=== PATIENT | female | born 1980 | race Caucasian/White ===

== ENCOUNTER → 2016-03-27 | Outpatient (CLI) | payer OTHER ==
--- NOTE | 2016-03-27 09:26 | US ---
Complete Pelvic Sonography (Transabdominal and Endovaginal) Clinical History: 35-year-old female whose physician felt a 3 x 5 cm "mass" above the sectio n scar about 3 weeks ago, and she has felt this for at least 6 months. It is not tender. Her LMP was March 27, 2016, and she is G2, P1. ICD-10 Diagnostic Code: R19.00 and R22.2. Technique: Initially, a curvilinear 5 MHz transducer was used to sonographically evaluate of the pelv is, using a full urinary bladder as a window. To better assess the uterine architecture and the adnex al structures, endovaginal pelvic sonography was also performed. Color Doppler and spectral Doppler a re used. A linear 12 MHz transducer was used to evaluate the area of palpable concern along the low m idline pelvis with color and spectral Doppler also utilized. Cine clips were acquired through this ar ea. Comparison Study: None. Findings: Transabdominal Pelvic Sonography: The uterus is normal in size, shape, and position, measuring 8.8 x 4.6 x 4.0 cm. There is an echogenic calcification associated with the section scar seen sejal g the lower anterior midline. The right adnexal region is obscured by bowel gas. There is limited ass essment of the left ovary. Along the low midline pelvis, anterior to the urinary bladder, there is a macrolobulated hypoechoic 6.2 x 2.6 x 7.1 cm mass. There is some minimal intrinsic vascular flow with color Doppler, and this does not have the appearance of a typical hematoma. A post- section desmoid tumor versus endometrium are the leading differential diagnostic considerations, and surgical correlation is suggested. Endovaginal Pelvic Sonography: Calcification is seen at the section scar, measuring 4 x 4 x 2 mm in diameter. The endometrial thickness is 11 mm. There is no focal myometrial abnormality. There is a tiny amount of free fluid in the pelvic cul-de-sac. The right ovary measures 2.5 x 1.8 x 3.0 cm , and contains some tiny peripheral follicles. The left ovary measures 2.6 x 1.3 x 2.7 cm, and also c ontains some tiny follicles. Intraovarian arterial and venous flow is documented. Impression: 1. The area of palpable concern resides anterior to the urinary bladder along the fascial plane; diff erential considerations would include an abdominal wall desmoid tumor versus endometrioma; surgical e xcision is suggested for further histologic evaluation. 2. Calcified scar along the lower anterior midline uterus, at the section level. The uterus is otherwise normal in appearance, as are the ovaries.
== END ==
LOC: CIMAGING 07:32
PROVIDERS: ATTEND Obstetrics & Gynecology
DX: R19.00 Intra-abdominal and pelvic swelling, mass and lump, unspecified site (principal); Z98.891 History of uterine scar from previous surgery
CPT/HCPCS: 76856-PO

== ENCOUNTER → 2016-04-05 | Outpatient (CLI) | payer OTHER ==
[~2016-04-05] MED LIST: IOPAMIDOL (ISOVUE 370) 100 ML BTL IV ONE
--- NOTE | 2016-04-05 14:52 | CT ---
Contrast-Enhanced CT Scan of the Abdomen and Pelvis Clinical History: 35-year-old female who has a mass along the fascial plane in the anterior pelvis at the level of a section scar, which is reportedly not cyclically tender; recent sonography i dentified a mildly vascular hypoechoic mass with the chief differential considerations of a desmoid t umor versus endometrioma. ICD-10 Diagnostic Code: R19.00. Technique: Following oral contrast and the uncomplicated intravenous administration of 90 mL of Isovu e-300, a multidetector helical CT scan was obtained from the lung bases inferiorly through the proxim al femora, with images reformatted at 5.00 and 1.25 mm increments, and reviewed at a variety of windo w and level settings. Parasagittal and paracoronal reconstructed images are reviewed on workstation. The DFOV is 40.0 cm. A dose reduction protocol was used. Findings: Contrast-Enhanced CT Scan of the Abdomen: The lung bases are clear. There is no pleural or pericardia l effusion. The stomach is moderately distended with ingested fluid and debris, as well as enteric co ntrast. The liver, partially contracted gallbladder, pancreas, spleen (which measures 11.3 cm), adren al glands, and the kidneys are normal. There is no ascites, or retroperitoneal or mesenteric lymphade nopathy. The abdominal aorta and IVC are normal in caliber. The splenic vein, superior mesenteric vei n, and the main portal vein are patent. The osseous structures are age-appropriate Contrast-Enhanced CT Scan of the Pelvis: There is a mildly hyperdense (versus enhancing) mass occupyi ng much of the caudal margin of the right rectus abdominis muscle, seen on axial series 3, images 277 -319, and also identified on coronal series 31, images 16-21. This measures 5.0 x 3.2 cm (transverse diameter) x 6.6 cm (cephalocaudal diameter), and has a Hounsfield unit measurement of 86. This is not ed near some scarring associated with the patient's previous section. On the prior pelvic so nogram, there was some vascular flow along the anterior margin of this mass. This militated against a complex seroma, and the chief differential diagnostic considerations would again remain a desmoid tu mor (aggressive fibromatosis) versus an endometrioma. A primary or secondary lymphoma could potential ly have this appearance, as could metastatic disease or a muscular tumor (with some hemorrhagic compo nents), although there is no history of a primary malignancy, lymphadenopathy, or splenomegaly. There is a normal appearance to the retrocecal appendix. There is no free fluid. The uterus is midline. Th e urinary bladder is moderately distended. There are tiny follicles associated with the ovaries, with no dominant solid or cystic adnexal mass. The osseous structures are age-appropriate. Impression: There is an infiltrative mass involving the caudal margin of the right rectus abdominis m uscle in this patient with a prior section. The chief diagnostic consideration at this point (given the lack of any cyclical pain) would be a desmoid tumor. Other possibilities would include an endometrioma, a primary or a secondary lymphoma, or metastatic lesion versus a muscular lesion; salguero mario, in this patient with a prior section, fibromatosis is considered the most likely diagno sis. Surgical excision is recommended for histologic confirmation.
== END ==
LOC: CIMAGING 13:03
PROVIDERS: ATTEND Obstetrics & Gynecology
DX: R19.03 Right lower quadrant abdominal swelling, mass and lump (principal)
CPT/HCPCS: 74177-PO; Q9967

== ENCOUNTER 2016-05-10 05:52 | Day surgery (SDC) | payer OTHER ==
[2016-05-10] MEDS ORDERED: LIDOCAINE 1% 5 ML SDV ONE (05:57)
[2016-05-10] MEDS ORDERED: ceFAZolin 2 GM/DEXTROSE 100 ML IV ONE (06:00)
[2016-05-10] MEDS ORDERED: BUPIVACAINE 0.5% 30 ML SDV ONE (07:10)
[2016-05-10] MEDS ORDERED: MIDAZOLAM 2 MG/2 ML VIAL ONE (07:22)
[2016-05-10] MEDS ORDERED: PROPOFOL/EMULSION 500 MG/50 ML BOTTLE IV ONE (08:04)
[2016-05-10] MEDS ORDERED: fentaNYL 100 MCG/2 ML INJ ONE ×3 (08:04→10:04)
[2016-05-10] MEDS ORDERED: LIDOCAINE 2% 5 ML SDV ONE (08:20)
[2016-05-10] MEDS ORDERED: KETOROLAC 30 MG/1 ML SDV ONE (08:22)
[2016-05-10] MEDS ORDERED: ONDANSETRON 4 MG/2 ML VIAL ONE (08:22)
[2016-05-10] MEDS ORDERED: DEXAMETHASONE 4 MG/ML VIAL ONE (08:22)
[2016-05-10] MEDS ORDERED: PHENYLEPHRINE HCL 100 MCG/ML SYR ONE (08:54)
[2016-05-10] MEDS ORDERED: SKIN ADHESIVE (DERMABOND) 1 EACH TP ONE (09:50)
[2016-05-10] MEDS ORDERED: HYDROCODONE/APAP 5/325 TAB ONE (11:09)
--- NOTE | 2016-05-12 14:48 | GOP ---
[f rep st] OPERATIVE REPORT DATE OF OPERATION: 05/10/2016 SURGEON: Carolyn Hernandez MD LEGAL BILLING COORDINATOR: Dina Heredia, ANNABELLE ANESTHESIA: General ANESTHESIOLOGIST: Deo Carranza DO PREOPERATIVE DIAGNOSIS: Abdominal mass. POSTOPERATIVE DIAGNOSIS: Desmoid tumor. PROCEDURE PERFORMED: Deep excisional removal of desmoid tumor that was incorporated into the fascia and rectus abdominis muscles. FINDINGS: Mass well adhered to rectus and peritoneum. SPECIMENS: Desmoid tumor. ESTIMATED BLOOD LOSS: 20 cc. INDICATIONS: The patient is a 35-year-old woman who developed a mass in her midline incision. It became increasingly bothersome. Imaging was obtained, which showed that it was intramuscular. DESCRIPTION OF PROCEDURE: The patient was brought into the operating room, placed supine on the table, and general anesthesia was administered. Her abdomen was prepped and draped in the usual sterile fashion. I infiltrated all sites with 0.5% Marcaine prior to making incisions. I made an incision over her previous scar from her . I dissected down through the subcutaneous tissues. I then encountered the rectus muscles, and I could feel that the mass was incorporated within this. I tried to separate the rectus muscles from the mass, but, unfortunately, it was well adhered. I cut some of the rectus muscles using electrocautery, and took out a large sample of the tumor and sent this to Pathology for frozen. I continued my dissection until I could not palpate any more of the desmoid tumor. I had to violate the fascia and part of the peritoneum to remove it in its entirety. The dissection occurred down to the insertion of the rectus distally. Hemostasis was achieved. I closed the peritoneum with 2-0 Vicryl. I reapproximated as much of the rectus as possible with 3-0 Vicryl. I closed the fascia with 0 PDS. I closed the deep layer of the subcutaneous tissue with 2-0 Vicryl. I closed the skin with 3-0 Vicryl, followed by 4-0 Monocryl. Dermabond applied. She was awakened in the operating room, extubated, and transferred to PACU in stable condition. /[id number]/MODL MTDD
== END 2016-05-10 11:40 | disposition home or self-care (01) ==
LOC: FSGY 05:52
PROVIDERS: ATTEND Surgery
PROC: 0WBF0ZZ Excision of Abdominal Wall, Open Approach (ICD-10-PCS; principal; 2016-05-10 07:30)
DX: D48.1 Neoplasm of uncertain behavior of connective and other soft tissue (principal); R32 Unspecified urinary incontinence
CPT/HCPCS: J0690; J1100; J1885; J2250; J2370; J2405; J2704; J3010

== ENCOUNTER 2016-05-16 07:58 | Emergency (ER) | payer OTHER ==
--- NOTE | 2016-05-16 08:14 | EDPHY ---
HPI/HX/ROS/PE/MDM Narrative: CHIEF COMPLAINT: Abdominal pain. HPI: This is a 35-year-old female status post abdominal tumor removal 6 days ago. This morning after urinating and standing up she developed severe sudden abdominal pain that caused her to vomit. She is unsure if the motion of standing up caused the pain. The pain has started to subside. She denies urinary symptoms, fever, cough, recent sickness. She has had no other pain between the surgery and now. REVIEW OF SYSTEMS: Aside from elements discussed in the HPI, a comprehensive 10-point review of systems was reviewed and is negative. PMH: Abdominal tumor removal, . SOCIAL HISTORY: . PHYSICAL EXAM: General:Patient is alert, in no acute distress. ENT:Eyes are normal to inspection. ENT inspection normal. Neck: Normal inspection. Full range of motion. Respiratory:No respiratory distress. Breath sounds normal bilaterally. Cardiovascular: Regular rate and rhythm. Strong peripheral pulses. Normal cap refill. Abdomen: There are no peritoneal signs. There are normal bowel sounds. Moderate LUQ tenderness. Incision clean, dry, intact, and non-tender. Back: Normal to inspection. No tenderness to palpation. Skin: Normal color. No rash. Warm and dry. Extremities: Normal appearance. Full range of motion. Neuro: Oriented x3. Normal motor function. Normal sensory function. ED Course: An IV was established and labs ordered. 1L IV saline administered for hydration , along with 4mg IV Morphine for pain and 4mg IV Zofran for nausea. I consulted with Dr. Hernandez, surgery, who performed the patient's operation. She has visited the patient in the ED and is comfortable with CT scan. Study: CT of the abdomen. Indication: Post-operative pain. Results: Negative. The study was read by the radiologist, Dr. Hernandez and reported to me at 1020. I viewed the images myself on the PACS system. 1048: Consulted with Dr. Hernandez, who has viewed the patient's CT. She is comfortable discharging her home. MDM: This patient presents with sudden onset of pain in the setting of recent abdominal wall surgery. We performed an extensive workup including blood work and CT scan. These are negative for acute process. There is some possibility that the patient may have had a ruptured ovarian cyst but there is no evidence of any pelvic pathology at this time. The patient was evaluated by her surgeon , Dr. Carolyn Hernandez, who feels she is appropriate for discharge home with close outpatient follow-up. On re-evaluation, the patient's abdomen is benign and she is comfortable with this plan. - Data Points Laboratory Results: Laboratory Results 05/16/16 08:40 05/16/16 08:46 05/16/16 05/16/16 05/16/16 09:20 08:46 08:40 WBC 7.94 10^3/uL 10^3/uL (3.80-9.50) RBC 4.78 10^6/uL 10^6/uL (4.18-5.33) Hgb 15.3 g/dL g/dL (12.6-16.3) POC Hgb Hct 45.0 % % (38.0-47.0) POC Hct MCV 94.1 fL fL (81.5-99.8) MCH 32.0 pg pg (27.9-34.1) MCHC 34.0 g/dL g/dL (32.4-36.7) RDW 12.1 % % (11.5-15.2) Plt Count 282 10^3/uL 10^3/uL (150-400) MPV 10.1 fL fL (8.7-11.7) Neut % (Auto) 66.1 % % (39.3-74.2) Lymph % (Auto) 23.9 % % (15.0-45.0) [place] % (Auto) 5.9 % % (4.5-13.0) Eos % (Auto) 3.4 % % (0.6-7.6) Baso % (Auto) 0.4 % % (0.3-1.7) Nucleat RBC Rel Count 0.0 % % (0.0-0.2) Absolute Neuts (auto) 5.25 10^3/uL 10^3/uL (1.70-6.50) Absolute Lymphs (auto) 1.90 10^3/uL 10^3/uL (1.00-3.00) Absolute Monos (auto) 0.47 10^3/uL 10^3/uL (0.30-0.80) Absolute Eos (auto) 0.27 10^3/uL 10^3/uL (0.03-0.40) Absolute Basos (auto) 0.03 10^3/uL 10^3/uL (0.02-0.10) Absolute Nucleated RBC 0.00 10^3/uL 10^3/uL (0-0.01) Immature Gran % 0.3 % % (0.0-1.1) Immature Gran # 0.02 10^3/uL 10^3/uL (0.00-0.10) POC Sodium Sodium 144 mEq/L mEq/L (134-144) POC Potassium Potassium 4.3 mEq/L mEq/L (3.5-5.2) POC Chloride Chloride 105 mEq/L mEq/L (97-110) Carbon Dioxide 25 mEq/l mEq/l (22-31) Anion Gap 14 mEq/L mEq/L (8-16) POC BUN BUN 16 mg/dL mg/dL (7-23) Creatinine 0.8 mg/dL mg/dL (0.6-1.0) POC Creatinine Estimated GFR > 60 Glucose 96 mg/dL mg/dL (70-100) POC Glucose Calcium 10.4 mg/dL mg/dL (8.5-10.4) Urine Color YELLOW Urine Appearance CLEAR Urine pH 7.0 (5.0-7.5) Ur Specific [place] 1.011 (1.002-1.030) Urine Protein NEGATIVE (NEGATIVE) Urine Ketones NEGATIVE (NEGATIVE) Urine Blood NEGATIVE (NEGATIVE) Urine Nitrate NEGATIVE (NEGATIVE) Urine Bilirubin NEGATIVE (NEGATIVE) Urine Urobilinogen NEGATIVE EU EU (0.2-1.0) Ur Leukocyte Esterase NEGATIVE (NEGATIVE) Ur Culture Indicated? NOT INDICATED (NI) Urine Glucose NEGATIVE (NEGATIVE) 05/16/16 08:37 WBC RBC Hgb POC Hgb 15.3 gm/dL gm/dL (12.3-15.9) Hct POC Hct 45 % % (35.5-47.5) MCV MCH MCHC RDW Plt Count MPV Neut % (Auto) Lymph % (Auto) [place] % (Auto) Eos % (Auto) Baso % (Auto) Nucleat RBC Rel Count Absolute Neuts (auto) Absolute Lymphs (auto) Absolute Monos (auto) Absolute Eos (auto) Absolute Basos (auto) Absolute Nucleated RBC Immature Gran % Immature Gran # POC Sodium 142 mEq/L mEq/L (134-144) Sodium POC Potassium 4.0 mEq/L mEq/L (3.3-5.0) Potassium POC Chloride 103 mEq/L mEq/L (96-108) Chloride Carbon Dioxide Anion Gap POC BUN 17 mg/dL mg/dL (7-23) BUN Creatinine POC Creatinine 0.8 mg/dL mg/dL (0.6-1.2) Estimated GFR Glucose POC Glucose 98 mg/dL mg/dL (70-100) Calcium Urine Color Urine Appearance Urine pH Ur Specific [place] Urine Protein Urine Ketones Urine Blood Urine Nitrate Urine Bilirubin Urine Urobilinogen Ur Leukocyte Esterase Ur Culture Indicated? Urine Glucose Medications Given: Discontinued Medications Sodium Chloride (Ns) 1,000 mls @ 0 mls/hr IV ONCE ONE PRN Reason: Wide Open Stop: 05/16/16 08:17 Last Admin: 05/16/16 08:44 Dose: 1,000 mls Morphine Sulfate (Morphine) 4 mg IVP Q1H PRN PRN Reason: Pain, Severe Unable to Take PO Stop: 05/16/16 10:17 Last Admin: 05/16/16 08:44 Dose: 2 mg Ondansetron HCl (Zofran) 4 mg IVP Q15M PRN PRN Reason: Nausea/Vomiting, Can't Take PO Stop: 05/16/16 08:32 Last Admin: 05/16/16 08:45 Dose: 4 mg Point of Care Test Results: 05/16/16 08:37 POC Sodium 142 POC Potassium 4.0 POC Chloride 103 POC BUN 17 POC Creatinine 0.8 POC Glucose 98 General Time Seen by Provider: 05/16/16 08:05 Initial Vital Signs: Initial Vital Signs Temperature (C) 36.5 C 05/16/16 08:00 Heart Rate 77 05/16/16 08:00 Respiratory Rate 18 05/16/16 08:00 Blood Pressure 114/70 05/16/16 08:00 O2 Sat (%) 98 05/16/16 08:00 O2 Delivery Mode Room Air Allergies/Adverse Reactions: acetaminophen [From Vicodin] Allergy (Verified 05/16/16 08:02) hydrocodone bitartrate [From Vicodin] Allergy (Verified 05/16/16 08:02) Other-Enter Comments Home Medications: Medication Instructions Recorded NK [No Known Home Meds] 05/16/16 Departure - Departure Disposition: Home, Routine, Self-Care Clinical Impression: Abdominal pain Condition: Good Instructions: Acute Abdominal Pain (ED) Additional Instructions: Follow up with Dr. Hernandez if your symptoms are not improving by tomorrow. Return to the emergency department if you experience any serious worsening of condition. Referrals: Carolyn Hernandez MD [Medical Doctor] - As per Instructions Report Scribed for: Kareem Iniguez Report Scribed by: Nnamdi Castrejon Date of Report: 05/16/16 Time of Report: 08:10 Physician Review and Approval Statement: Portions of this note were transcribed by a medical lab scientist. I personally performed a history, physical exam, medical decision making, and confirmed accuracy of information the transcribed note.
[2016-05-16] MEDS ORDERED: NS 1,000 ML IV ONE (08:16)
[2016-05-16] MEDS ORDERED: ONDANSETRON 4 MG/2 ML VIAL IVP PRN (08:16)
[2016-05-16 08:49] LABS: % IMMATURE GRANULYOCYTES 0.3 % (0.0-1.1); ABSOLUTE IMMATURE GRANULOCYTES 0.02 10^3/uL (0.00-0.10); ADD DIFF? NO; ADD MORPH? NO; ADD SCAN? NO; ATYPICAL LYMPHOCYTE FLAG 10 (0-99); FRAGMENT RBC FLAG 0 (0-99); HEMOGLOBIN 15.3 g/dL (12.6-16.3); LEFT SHIFT FLG 0 (0-99); LIPEMIA HEMOLYSIS FLAG 90 (0-99); MEAN CELL VOLUME 94.1 fL (81.5-99.8); MEAN PLATELET VOLUME 10.1 fL (8.7-11.7); PLATELET CLUMPS FLAG 30 (0-99); PLATELET COUNT 282 10^3/uL (150-400); RED BLOOD CELL COUNT 4.78 10^6/uL (4.18-5.33); RED CELL DISTRIBUTION WIDTH 12.1 % (11.5-15.2)
[2016-05-16] MEDS ORDERED: IOPAMIDOL (ISOVUE-300) 100 ML BTL IV ONE (09:10)
[2016-05-16 09:11] LABS: ANION GAP 14 mEq/L (8-16); CALCIUM 10.4 mg/dL (8.5-10.4); CARBON DIOXIDE 25 mEq/l (22-31); CHLORIDE 105 mEq/L (97-110); CREATININE 0.8 mg/dL (0.6-1.0); GLOMERULAR FILTRATION RATE > 60; GLUCOSE 96 mg/dL (70-100); POTASSIUM 4.3 mEq/L (3.5-5.2); SODIUM 144 mEq/L (134-144)
[2016-05-16 09:27] LABS: COLOR YELLOW; LEUKOCYTE ESTERASE,URINE NEGATIVE (NEGATIVE); NITRITE,URINE NEGATIVE (NEGATIVE)
[2016-05-16 10:10] VITALS: RESP 16; O2SAT 95
[2016-05-16 11:00] VITALS: BP 120/65; PULSE 77; TEMP 97.9
--- NOTE | 2016-05-16 11:14 | PDCONSULT ---
Airplane Tester Note: Rosalba was doing excellent yesterday. She developed pain in her abdomen today and thought she needed to have a bowel movement. She then had emesis. Her pain is mostly in her LUQ and described as tender. physical exam with yellowing ecchymosis. minimal tenderness by incision. Slightly tender to palpation in LUQ. CT with fluid in pelvis, possible ruptured ovarian cyst. Labs wnl. F/U friday
== END 2016-05-16 11:05 | disposition home or self-care (01) ==
DX: R10.12 Left upper quadrant pain (principal); G89.18 Other acute postprocedural pain
CPT/HCPCS: 82947-QW; 96374; J2405; Q9967

== ENCOUNTER → 2016-10-22 | Outpatient (CLI) | payer OTHER | LOC: FIMAGING 08:30 | PROVIDERS: ATTEND Obstetrics & Gynecology | DX: Z03.79 Encounter for other suspected maternal and fetal conditions ruled out (principal); Z98.891 History of uterine scar from previous surgery ==

== ENCOUNTER → 2016-12-10 | Outpatient (CLI) | payer OTHER | LOC: FIMAGING 07:09 | PROVIDERS: ATTEND Obstetrics & Gynecology | DX: Z34.82 Encounter for supervision of other normal pregnancy, second trimester (principal); Z3A.35 35 weeks gestation of pregnancy ==

== ENCOUNTER → 2017-02-11 | Outpatient (CLI) | payer OTHER | LOC: FIMAGING 08:53 | PROVIDERS: ATTEND Obstetrics & Gynecology | DX: Z36.89 Encounter for other specified antenatal screening (principal); Z3A.29 29 weeks gestation of pregnancy; O34.219 Maternal care for unspecified type scar from previous cesarean delivery ==

== ENCOUNTER → 2017-03-18 | Outpatient (CLI) | payer OTHER | LOC: FIMAGING 14:17 | PROVIDERS: ATTEND Obstetrics & Gynecology | DX: Z03.79 Encounter for other suspected maternal and fetal conditions ruled out (principal); Z3A.34 34 weeks gestation of pregnancy ==

== ENCOUNTER → 2018-06-18 | Outpatient (CLI) | payer OTHER | LOC: EMCIMAGING 07:18 | PROVIDERS: ATTEND Surgery | DX: R22.2 Localized swelling, mass and lump, trunk (principal) | CPT/HCPCS: 76700-PN ==